=== PATIENT | male | born 1950 | race Caucasian/White ===

== ENCOUNTER 2016-07-14 11:01 | Outpatient (CLI) | payer OTHER | END 2016-07-14 11:02 | disposition home or self-care (01) | LOC: NAVSJIPCSP 11:01 | PROVIDERS: ATTEND Internal Medicine | DX: E78.5 Hyperlipidemia, unspecified (principal) | CPT/HCPCS: 36415; 80061 ==

== ENCOUNTER 2016-07-19 10:42 | Outpatient (CLI) | payer OTHER ==
[2016-07-19 12:24] LABS: Bilirubin Negative (Negative); Blood, Urine Small (Negative); Glucose, Urine (Dipstick) Negative (Negative); Ketone, Urine Negative (Negative); Nitrite Negative (Negative); Protein, Urine (Dipstick) Negative (Neg-Trace); Urobilinogen 0.2 mg/dL (0.2-1.0)
[2016-07-19 12:38] LABS: Bacteria/HPF Rare-Few HPF (None Seen); Squamous Epithelial 0-3 HPF (0-3); WBC/HPF 0-3 HPF (0-3)
== END 2016-07-19 10:43 | disposition home or self-care (01) ==
LOC: NAVSJIPCSP 10:42
PROVIDERS: ATTEND Internal Medicine
DX: N40.1 Benign prostatic hyperplasia with lower urinary tract symptoms (principal); E78.5 Hyperlipidemia, unspecified
CPT/HCPCS: 36415; 81001

== ENCOUNTER 2023-05-16 11:52 | Outpatient (CLI) | payer MEDICARE, OTHER | END 2023-05-16 11:53 | disposition home or self-care (01) | LOC: NAV RAD 11:52 | PROVIDERS: ATTEND Family Medicine | DX: R05.9 Cough, unspecified (principal); I77.810 Thoracic aortic ectasia | CPT/HCPCS: 71046 ==